=== PATIENT | male | born 1975 | race Hispanic/Latino ===

== ENCOUNTER 2020-03-16 23:54 | Emergency (ER) | payer OTHER ==
[2020-03-17] MEDS ORDERED: LIDOCAINE 1%-EPI 1:100,000 20 ML VIAL IJ ONE (00:19)
[2020-03-17] MEDS ORDERED: TETANUS/DIPHTHERIA TOXOID [ADULT] 0.5 ML VIAL IM ONE (00:48)
[2020-03-17] MEDS ORDERED: OCTYL 2-CYANOACRYLATE 1 EACH TP ONE (00:49)
== END 2020-03-17 02:30 | disposition home or self-care (01) ==
LOC: EDH 23:54
DX: S81.812A Laceration without foreign body, left lower leg, initial encounter (principal); Z90.49 Acquired absence of other specified parts of digestive tract; Z72.0 Tobacco use; W26.8XXA Contact with other sharp object(s), not elsewhere classified, initial encounter; Y93.89 Activity, other specified; Y92.830 Public park as the place of occurrence of the external cause; Y99.8 Other external cause status
CPT/HCPCS: 12002; 12035; 90471; 90714; 99285; J3490